=== PATIENT | male | born 1960 | race Caucasian/White ===

== ENCOUNTER 2023-10-18 20:48 | Inpatient (IN) | payer OTHER ==
[~2023-10-18] VITALS: Ht 175.3 cm; Wt 154.2 kg
[2023-10-18 21:32] VITALS: BP_SYST 114; PULSE 124; RESP 21; TEMP 98.9; O2SAT 94
[2023-10-19] MEDS: NACL 0.9% 2,000 ML IV ONE (00:26)
[2023-10-19 00:59] LABS: BASOPHILS % (AUTO) 0.1 % (0.0-2.0); HEMATOCRIT 46.4 % (36-54); HEMOGLOBIN 16.4 g/dL (14.0-18.0); LYMPHOCYTES # (AUTO) 0.9 K/uL (1.0-5.5); LYMPHOCYTES % (AUTO) 8.1 % (20.5-51.5); MEAN CORPUSCULAR HEMOGLOBIN 32 pg (27-31); MEAN CORPUSCULAR HGB CONC 36 % (32-36); MEAN CORPUSCULAR VOLUME 92 fL (79.0-98.0); MONOCYTES # (AUTO) 0.8 K/uL (0.0-1.0); MONOCYTES % (AUTO) 7.2 % (1.7-9.3); NEUTROPHILS # (AUTO) 9.6 K/uL (1.8-7.7); NEUTROPHILS % (AUTO) 84.6 % (40.0-70.0); PLATELET COUNT (AUTO) 197 K/uL (130-430); RED BLOOD CELL COUNT(AUTO) 5.07 MIL/uL (4.2-6.2); RED CELL DISTRIBUTION WIDTH 13.6 % (9.0-15.0); WHITE BLOOD COUNT (AUTO) 11.4 K/uL (4.8-10.8)
[2023-10-19 01:31] LABS: ALBUMIN 2.9 g/dL (3.4-4.8); BILIRUBIN,DIRECT 0.2 mg/dL (0.0-0.3); CREATININE 1.43 mg/dL (0.55-1.30); TOTAL BILIRUBIN 0.7 mg/dL (0.0-1.0); TOTAL PROTEIN, SERUM 7.7 g/dL (6.4-8.3)
[2023-10-19 01:43] LABS: POTASSIUM 2.9 mmol/L (3.5-5.1)
[2023-10-19] MEDS: ONDANSETRON HCL 4 MG/2 ML VIAL IVP ONE (01:45)
[2023-10-19 02:56] LABS: BILIRUBIN,URINE 1+ (NEGATIVE); BLOOD, URINE 3+ (NEGATIVE); CLARITY/URINE SL CLOUDY (CLEAR); COLOR,URINE YELLOW (YELLOW); GLUCOSE,URINE NEGATIVE (NEGATIVE); KETONES,URINE NEGATIVE (NEGATIVE); LEUKOCYTE ESTERASE ,URINE NEGATIVE (NEGATIVE); NITRITE, URINE NEGATIVE (NEGATIVE); PROTEIN URINE 2+ (NEGATIVE); UROBILINOGEN,URINE 0.2 (0.2-1.0)
[2023-10-19] MEDS: POTASSIUM CHLORIDE 20 MEQ TABLET.ER PO ONE (03:09)
[2023-10-19 03:29] LABS: RBC,URINE >100 /HPF (0-3)
[2023-10-19 03:31] LABS: BACTERIA,URINE None Seen /HPF (None Seen)
[2023-10-19] MEDS ORDERED: MORPHINE 2 MG/ML INJ. SYRINGE IVP PRN ×2 (05:00→10:00)
[2023-10-19] MEDS ORDERED: ATEN50TA PO (05:32)
[2023-10-19] MEDS ORDERED: LISI20TA30 PO (05:32)
[2023-10-19] MEDS: NACL 0.9% 1,000 ML IV SCH (07:00)
[2023-10-19] MEDS ORDERED: ALBUTEROL SULFATE 0.083% 2.5 MG/3 ML VIAL.NEB INH PRN (10:00)
[2023-10-19] MEDS ORDERED: ACETAMINOPHEN 325 MG TABLET PO PRN (10:00)
[2023-10-19] MEDS ORDERED: ONDANSETRON HCL 4 MG/2 ML VIAL IVP PRN (10:00)
[2023-10-19] MEDS ORDERED: HYDROcodone/ACETAMIN 10-325 MG TAB PO PRN (10:00)
[2023-10-19] MEDS ORDERED: HYDROcodone/ACETAMIN 5-325 MG TAB (NORCO/ VICODIN) PO PRN (10:00)
[2023-10-19] MEDS ORDERED: NALOXONE HCL 0.4 MG/ML AMP (NARCAN) IVP PRN (10:00)
[2023-10-19 10:01] LABS: BASOPHILS % (AUTO) 0.4 % (0.0-2.0); EOSINOPHILS % (AUTO) 0.2 % (0.0-4.0); HEMOGLOBIN 15.3 g/dL (14.0-18.0); LYMPHOCYTES % (AUTO) 9.2 % (20.5-51.5); MEAN CORPUSCULAR HEMOGLOBIN 32 pg (27-31); MEAN CORPUSCULAR HGB CONC 36 % (32-36); MEAN CORPUSCULAR VOLUME 91 fL (79.0-98.0); MONOCYTES # (AUTO) 0.9 K/uL (0.0-1.0); MONOCYTES % (AUTO) 8.8 % (1.7-9.3); NEUTROPHILS # (AUTO) 8.5 K/uL (1.8-7.7); NEUTROPHILS % (AUTO) 81.4 % (40.0-70.0); PLATELET COUNT (AUTO) 175 K/uL (130-430); RED BLOOD CELL COUNT(AUTO) 4.72 MIL/uL (4.2-6.2); RED CELL DISTRIBUTION WIDTH 13.5 % (9.0-15.0); WHITE BLOOD COUNT (AUTO) 10.5 K/uL (4.8-10.8)
[2023-10-19 10:18] LABS: ALBUMIN 2.6 g/dL (3.4-4.8); CALCIUM 8.2 mg/dL (8.4-11.0); CREATININE 0.97 mg/dL (0.55-1.30); TOTAL BILIRUBIN 0.8 mg/dL (0.0-1.0)
[2023-10-19 10:23] VITALS: BP_SYST 140; PULSE 97; O2SAT 91
[2023-10-19 10:40] VITALS: BP_SYST 131; PULSE 97; RESP 18; TEMP 96.5
[2023-10-19 10:50] LABS: POTASSIUM 2.7 mmol/L (3.5-5.1)
[2023-10-19] MEDS: POTASSIUM CHLORIDE 40 MEQ, LIDOCAINE JECT 2% PF 100 MG 75 MG in NS 250 ML IV ONE (13:18)
[2023-10-19 13:22] VITALS: O2SAT 95
[2023-10-19 20:00] VITALS: BP_SYST 130; PULSE 102; RESP 18; TEMP 98.8; O2SAT 94
[2023-10-20] VITALS: BP_SYST 135; PULSE 98; RESP 17; TEMP 98.5; O2SAT 95
[2023-10-20 07:03] LABS: BASOPHILS % (AUTO) 0.5 % (0.0-2.0); EOSINOPHILS % (AUTO) 0.4 % (0.0-4.0); HEMATOCRIT 37.3 % (36-54); HEMOGLOBIN 13.2 g/dL (14.0-18.0); LYMPHOCYTES # (AUTO) 1.1 K/uL (1.0-5.5); LYMPHOCYTES % (AUTO) 11.2 % (20.5-51.5); MEAN CORPUSCULAR HEMOGLOBIN 32 pg (27-31); MEAN CORPUSCULAR HGB CONC 35 % (32-36); MEAN CORPUSCULAR VOLUME 91 fL (79.0-98.0); MONOCYTES # (AUTO) 1.1 K/uL (0.0-1.0); MONOCYTES % (AUTO) 11.2 % (1.7-9.3); NEUTROPHILS # (AUTO) 7.4 K/uL (1.8-7.7); NEUTROPHILS % (AUTO) 76.7 % (40.0-70.0); PLATELET COUNT (AUTO) 175 K/uL (130-430); RED CELL DISTRIBUTION WIDTH 13.5 % (9.0-15.0); WHITE BLOOD COUNT (AUTO) 9.6 K/uL (4.8-10.8)
[2023-10-20 07:13] LABS: ALBUMIN 2.3 g/dL (3.4-4.8); CALCIUM 7.7 mg/dL (8.4-11.0); CREATININE 0.73 mg/dL (0.55-1.30); TOTAL BILIRUBIN 0.6 mg/dL (0.0-1.0); TOTAL PROTEIN, SERUM 6.2 g/dL (6.4-8.3)
[2023-10-20 07:44] LABS: POTASSIUM 2.8 mmol/L (3.5-5.1)
[2023-10-20 08:00] VITALS: BP_SYST 132; PULSE 77; RESP 15; TEMP 97.6; O2SAT 95
[2023-10-20] MEDS: ACETAMINOPHEN 325 MG TABLET PO PRN (08:16)
[2023-10-20 09:00] VITALS: O2SAT 95
[2023-10-20] MEDS: ATENOLOL 50 MG TABLET (TENORMIN) PO SCH (09:46)
[2023-10-20] MEDS: lisinopriL 20 MG TABLET PO SCH (09:46)
[2023-10-20] MEDS: POTASSIUM CHLORIDE 40 MEQ, LIDOCAINE JECT 2% PF 100 MG 75 MG in NS 250 ML IV ONE (10:48)
[2023-10-20] MEDS: POTASSIUM CHLORIDE 20 MEQ/PKT PACKET PO ONE (11:30)
[2023-10-20 12:00] VITALS: BP_SYST 104; PULSE 77; RESP 15; TEMP 98.1; O2SAT 95
[2023-10-20] MEDS: LOPERAMIDE HCL 2 MG CAPSULE PO ONE (14:58)
[2023-10-20 16:00] VITALS: BP_SYST 107; PULSE 79; RESP 14; TEMP 97.4; O2SAT 95
[2023-10-20 20:00] VITALS: BP_SYST 132; PULSE 77; RESP 16; TEMP 98.4; O2SAT 94
[2023-10-21] VITALS: BP_SYST 115; PULSE 84; RESP 17; TEMP 98.1; O2SAT 93
[2023-10-21 08:05] VITALS: BP_SYST 120; PULSE 77; RESP 18; TEMP 97.5; O2SAT 98
[2023-10-21 10:59] VITALS: BP_SYST 140; PULSE 77; RESP 22; TEMP 97.5; O2SAT 94
[2023-10-21 11:16] LABS: BASOPHILS % (AUTO) 0.5 % (0.0-2.0); EOSINOPHILS # (AUTO) 0.1 K/uL (0.0-0.4); EOSINOPHILS % (AUTO) 1.2 % (0.0-4.0); HEMATOCRIT 36.8 % (36-54); HEMOGLOBIN 13.1 g/dL (14.0-18.0); LYMPHOCYTES # (AUTO) 1.3 K/uL (1.0-5.5); LYMPHOCYTES % (AUTO) 12.4 % (20.5-51.5); MEAN CORPUSCULAR HEMOGLOBIN 32 pg (27-31); MEAN CORPUSCULAR HGB CONC 36 % (32-36); MEAN CORPUSCULAR VOLUME 91 fL (79.0-98.0); MONOCYTES # (AUTO) 1.3 K/uL (0.0-1.0); MONOCYTES % (AUTO) 12.4 % (1.7-9.3); NEUTROPHILS # (AUTO) 7.8 K/uL (1.8-7.7); NEUTROPHILS % (AUTO) 73.5 % (40.0-70.0); PLATELET COUNT (AUTO) 218 K/uL (130-430); RED BLOOD CELL COUNT(AUTO) 4.06 MIL/uL (4.2-6.2); RED CELL DISTRIBUTION WIDTH 13.7 % (9.0-15.0); WHITE BLOOD COUNT (AUTO) 10.6 K/uL (4.8-10.8)
[2023-10-21 11:31] LABS: ALBUMIN 2.3 g/dL (3.4-4.8); CREATININE 0.59 mg/dL (0.55-1.30); TOTAL BILIRUBIN 0.4 mg/dL (0.0-1.0); TOTAL PROTEIN, SERUM 6.2 g/dL (6.4-8.3)
[2023-10-21 11:33] LABS: POTASSIUM 2.9 mmol/L (3.5-5.1)
[2023-10-21] MEDS: POTASSIUM CHLORIDE 20 MEQ TABLET.ER PO ONE (11:57)
[2023-10-21] MEDS: MAGNESIUM OXIDE 400 MG TABLET PO ONE (14:26)
[2023-10-21 16:34] VITALS: BP_SYST 141; PULSE 79; RESP 20; TEMP 97.9; O2SAT 97
[2023-10-21 19:20] LABS: CALCIUM 8.2 mg/dL (8.4-11.0); CREATININE 0.59 mg/dL (0.55-1.30)
[2023-10-21 19:23] LABS: POTASSIUM 2.9 mmol/L (3.5-5.1)
[2023-10-21 20:00] VITALS: BP_SYST 136; PULSE 83; RESP 20; TEMP 98; O2SAT 93
[2023-10-22] VITALS (7 sets, daily range): BP systolic 121–130; PULSE 76–88; RESP 18–20; TEMP 97.3–98.7; O2SAT 94–96
[2023-10-22 05:40] LABS: BASOPHILS # (AUTO) 0.1 K/uL (0.0-0.2); BASOPHILS % (AUTO) 0.6 % (0.0-2.0); EOSINOPHILS # (AUTO) 0.2 K/uL (0.0-0.4); HEMATOCRIT 34.9 % (36-54); HEMOGLOBIN 12.4 g/dL (14.0-18.0); LYMPHOCYTES # (AUTO) 1.4 K/uL (1.0-5.5); LYMPHOCYTES % (AUTO) 13.7 % (20.5-51.5); MEAN CORPUSCULAR HEMOGLOBIN 32 pg (27-31); MEAN CORPUSCULAR HGB CONC 36 % (32-36); MEAN CORPUSCULAR VOLUME 90 fL (79.0-98.0); MONOCYTES # (AUTO) 1.3 K/uL (0.0-1.0); MONOCYTES % (AUTO) 13.5 % (1.7-9.3); NEUTROPHILS % (AUTO) 70.2 % (40.0-70.0); PLATELET COUNT (AUTO) 214 K/uL (130-430); RED BLOOD CELL COUNT(AUTO) 3.86 MIL/uL (4.2-6.2); RED CELL DISTRIBUTION WIDTH 13.5 % (9.0-15.0); WHITE BLOOD COUNT (AUTO) 9.9 K/uL (4.8-10.8)
[2023-10-22 06:08] LABS: ALBUMIN 2.1 g/dL (3.4-4.8); CALCIUM 7.8 mg/dL (8.4-11.0); CREATININE 0.54 mg/dL (0.55-1.30); TOTAL BILIRUBIN 0.4 mg/dL (0.0-1.0); TOTAL PROTEIN, SERUM 5.8 g/dL (6.4-8.3)
[2023-10-22 08:10] LABS: POTASSIUM 2.7 mmol/L (3.5-5.1)
[2023-10-22] MEDS: POTASSIUM CHLORIDE 20 MEQ/PKT PACKET PO SCH (09:16)
[2023-10-22] MEDS: KCL 20 mEq in 100 mL (PREMIX) 200 ML IV ONE (09:24)
[2023-10-22] MEDS: KCL 20 mEq in D5/0.45NS 1000mL 1,000 ML IV SCH (09:25)
[2023-10-22 16:03] LABS: CALCIUM 8.2 mg/dL (8.4-11.0); CREATININE 0.59 mg/dL (0.55-1.30); POTASSIUM 3.3 mmol/L (3.5-5.1)
[2023-10-23 02:15] VITALS: RESP 20; TEMP 97.4; O2SAT 97
[2023-10-23 04:41] LABS: BASOPHILS # (AUTO) 0.1 K/uL (0.0-0.2); BASOPHILS % (AUTO) 1.1 % (0.0-2.0); EOSINOPHILS # (AUTO) 0.3 K/uL (0.0-0.4); EOSINOPHILS % (AUTO) 3.1 % (0.0-4.0); HEMATOCRIT 35.2 % (36-54); HEMOGLOBIN 12.7 g/dL (14.0-18.0); LYMPHOCYTES # (AUTO) 1.7 K/uL (1.0-5.5); LYMPHOCYTES % (AUTO) 19.1 % (20.5-51.5); MEAN CORPUSCULAR HEMOGLOBIN 33 pg (27-31); MEAN CORPUSCULAR HGB CONC 36 % (32-36); MEAN CORPUSCULAR VOLUME 91 fL (79.0-98.0); MONOCYTES # (AUTO) 1.2 K/uL (0.0-1.0); NEUTROPHILS # (AUTO) 5.5 K/uL (1.8-7.7); NEUTROPHILS % (AUTO) 62.7 % (40.0-70.0); PLATELET COUNT (AUTO) 276 K/uL (130-430); RED BLOOD CELL COUNT(AUTO) 3.88 MIL/uL (4.2-6.2); RED CELL DISTRIBUTION WIDTH 13.6 % (9.0-15.0); WHITE BLOOD COUNT (AUTO) 8.7 K/uL (4.8-10.8)
[2023-10-23 05:29] LABS: CALCIUM 8.3 mg/dL (8.4-11.0); CREATININE 0.62 mg/dL (0.55-1.30); PHOSPHORUS 3.3 mg/dL (2.7-4.5); POTASSIUM 3.2 mmol/L (3.5-5.1)
[2023-10-23 08:00] VITALS: O2SAT 93
[2023-10-23 08:30] VITALS: O2SAT 93
[2023-10-23 08:32] VITALS: BP_SYST 140; PULSE 83; RESP 16; TEMP 97.1; O2SAT 95
[2023-10-23] MEDS ORDERED: POTA25TA41 PO (09:31)
[2023-10-23 12:14] VITALS: BP_SYST 126; PULSE 76; RESP 16; TEMP 97.8; O2SAT 96
[2023-10-23 13:43] VITALS: BP_SYST 126; PULSE 76; RESP 16; TEMP 97.8; O2SAT 96
== END 2023-10-23 14:06 | disposition home health service (06) | DRG 682 ==
LOC: SED 20:48 → SMU 23:40
PROVIDERS: ADMIT Family Medicine; ATTEND Family Medicine
DX: N17.0 Acute kidney failure with tubular necrosis (principal); E43 Unspecified severe protein-calorie malnutrition; Z68.42 Body mass index [BMI] 45.0-49.9, adult; E87.1 Hypo-osmolality and hyponatremia; E86.0 Dehydration; K52.9 Noninfective gastroenteritis and colitis, unspecified; E87.6 Hypokalemia; I10 Essential (primary) hypertension; E88.09 Other disorders of plasma-protein metabolism, not elsewhere classified; E66.01 Morbid (severe) obesity due to excess calories; D64.9 Anemia, unspecified; E83.51 Hypocalcemia; Z79.899 Other long term (current) drug therapy
CPT/HCPCS: 36415; 71045; 76770; 80048; 80053; 80076; 81000; 81001; 81015; 83037; 83735; 83880; 84100; 84132; 84484; 85025; 87040; 87177; 87230; 93005; 94070; 94760; 96361; 96374; 99285; J2405; J3480; J7050